=== PATIENT | female | born 1940 | race Caucasian/White ===

== ENCOUNTER → 2016-12-08 | Outpatient (CLI) | payer OTHER ==
[~2016-12-08] MED LIST: CALCIUM 1,0001 EACH PO; GLUCOTROL XL PO; LISINOPRIL-HCTZ1 T16 PO; METFORMIN PO; NORCO 5/325 TAB1 TAB; SIMVASTATIN20 MG PO; XARELTO15 MG PO
--- NOTE | ~2016-12-08 | US85 ---
[facility] A Service of [facility] RADIOLOGY TEXT RESULTS PATIENT: ISAI GARCIA LOCATION: CNIV : 40 UNIT #: [id number] AGE: [address]: Efrain Hicks MD SEX: F ORDER DR: [id number] [facility] [address] [place], [place] [address] [id number] O MR#: [id number] Acc #: [id number] NAME: ISAI GARCIA : 1940 SEX: F STUDY DATE/TIME: 12/08/2016 13:27 UNIT: CNIV ROOM: STUDY DESCRIPTION: LE Veins Unilat or Ltd Stdy Attending Physician: Efrain Hicks M.D. Referring Physician: Efrain Hicks M.D. Ordering Physician: Efrain Hicks M.D. Primary Care Physician: Simi Gomez M.D. MEDICAL IMAGING REPORT This report is preliminary unless electronic signature is present EXAM Unilateral right lower extremity venous Doppler. HISTORY Right leg pain and distal thigh and groin for 2 weeks. PROCEDURE Law-scale imaging, color-Doppler flow imaging and Doppler waveform analysis. FINDINGS The common and deep and superficial femoral and popliteal veins are patent but below-knee anterior and posterior tibial veins are patent as well. However, there is occlusive thrombus in the below-knee peroneal veins, as well as in the superficial saphenous vein. Incidentally noted popliteal fossa Evans's cyst. IMPRESSION 1. Positive for occlusive below-knee DVT in the peroneal vein, as well as the superficial venous thrombus in the greater saphenous vein above and below the knee. 2. Incidental note made of popliteal fossa Evans's cyst. Dictated by... Christiano Lama M.D. THIS IS AN ELECTRONICALLY VERIFIED REPORT Christiano Lama M.D. at 12/09/2016 9:38 AM KILO/elaina TD: 12/08/2016 18:51 [facility] A Service of [facility] RADIOLOGY TEXT RESULTS PATIENT: ISAI GARCIA LOCATION: CNIV : 40 UNIT #: [id number] AGE: [address]: Efrain Hicks MD SEX: F ORDER DR: JOB #: [id number] MEDICAL IMAGING REPORT Page 1 of 1 COPY
== END | disposition home or self-care (01) ==
LOC: CNIV 12:58
DX: I80.10 Phlebitis and thrombophlebitis of unspecified femoral vein (principal); I82.4Z1 Acute embolism and thrombosis of unspecified deep veins of right distal lower extremity
CPT/HCPCS: 93971